=== PATIENT | female | born 1950 | race Hispanic/Latino ===

== ENCOUNTER 2017-01-05 07:22 | Day surgery (SDC) | payer MEDICARE, OTHER ==
[2016-12-28 09:26] VITALS: BMI 20.1
[2017-01-05] MEDS ORDERED: Propofol 10 mg/ml Inj (20 ML) ONE (08:39)
[2017-01-05] MEDS ORDERED: Sodium Chloride 0.9% 1,000 ML IV SCH (09:00)
[2017-01-05 16:10] VITALS: RESP 12; TEMP 97.4
[2017-01-05 16:11] VITALS: BP 121/61; PULSE 67; O2SAT 97
== END 2017-01-05 10:58 | disposition home or self-care (01) ==
LOC: ENDO 07:22
PROVIDERS: ATTEND Specialist
DX: K57.30 Diverticulosis of large intestine without perforation or abscess without bleeding (principal); Z12.11 Encounter for screening for malignant neoplasm of colon; Z80.0 Family history of malignant neoplasm of digestive organs
CPT/HCPCS: 45378; J2001; J2704; J7040 ×2